=== PATIENT | female | born 1970 | race American Indian/Alaskan Native ===

== ENCOUNTER 2017-03-11 16:48 | Inpatient (IN) | payer OTHER ==
[2017-03-11] MEDS ORDERED: Sodium Chloride 0.9% 1,000 ML IV ONE (17:22)
--- NOTE | 2017-03-11 17:32 | C.PDOC ---
Time Seen by Provider: 03/11/17 17:20 Chief Complaint (Nursing): Abnormal Labs Past Medical History Vital Signs: Last Vital Signs Temp 98.3 F 03/11/17 17:02 Pulse 84 03/11/17 17:02 Resp 16 03/11/17 17:02 BP 134/81 03/11/17 17:02 Pulse Ox 100 03/11/17 17:02 - Medical History PMH: Anemia - Social History Hx Alcohol Use: Yes Hx Substance Use: No - Immunization History Hx Tetanus Toxoid Vaccination: No Hx Influenza Vaccination: No Hx Pneumococcal Vaccination: No ED Course And Treatment O2 Sat by Pulse Oximetry: 100 Disposition - Disposition
--- NOTE | 2017-03-11 18:13 | C.PDOC ---
History Of Present Illness 46 yo female w/PMHx of iron deficiency anemia come in for evaluation of weakness , palpitation, SOB on exertion gradually developed for past few weeks. Pt reports, went to PMD and blood work was drawn on 03/10/17. Pt sts, was called by PMD today and notified that Hb 6. Pt admits, previous hx of iron transfusion , denies blood transfusion. Pt reports, (+) menstrual periods. Otherwise, pt denies fever, chills, LOC, neck pain, CP, diaphoresis, abd. pain, V/D, melena, hematoschezia, back pain, Ambulate to Ed for evaluation, not in any apparent distress. Time Seen by Provider: 03/11/17 17:20 Chief Complaint (Nursing): Abnormal Labs History Per: Patient Onset/Duration Of Symptoms: Gradual Past Medical History Reviewed: Historical Data, Nursing Documentation, Vital Signs Vital Signs: Last Vital Signs Temp 98.3 F 03/11/17 17:02 Pulse 84 03/11/17 17:02 Resp 16 03/11/17 17:02 BP 134/81 03/11/17 17:02 Pulse Ox 100 03/11/17 18:44 - Medical History PMH: Anemia Surgical History: No Surg Hx Family History: States: No Known Family Hx - Social History Hx Tobacco Use: No Hx Alcohol Use: Yes Hx Substance Use: No - Immunization History Hx Tetanus Toxoid Vaccination: No Hx Influenza Vaccination: No Hx Pneumococcal Vaccination: No Review Of Systems Except As Marked, All Systems Reviewed And Found Negative. Constitutional: Negative for: Fever, Chills Eyes: Negative for: Vision Change ENT: Negative for: Throat Pain Cardiovascular: Positive for: Palpitations. Negative for: Chest Pain, Orthopnea Respiratory: Positive for: SOB with Excertion. Negative for: Cough, Shortness of Breath, Wheezing Gastrointestinal: Negative for: Nausea, Vomiting, Abdominal Pain, Melena, Hematochezia, Hematemesis Musculoskeletal: Negative for: Neck Pain, Back Pain Skin: Negative for: Rash Neurological: Negative for: Weakness, Numbness, Altered Mental Status Physical Exam - Physical Exam Appears: Well, Non-toxic, No Acute Distress Skin: Normal Color, Warm Head: Normacephalic Eye(s): bilateral: PERRL Nose: No Flaring, No Discharge Oral Mucosa: Moist Tongue: Normal Appearing Neck: Trachea Midline, Supple Cardiovascular: Rhythm Regular, No JVD, Other ((-) carotid bruits B/L) Respiratory: No Decreased Breath Sounds, No Accessory Muscle Use Gastrointestinal/Abdominal: Soft, No Tenderness, No Distention, No Guarding Back: No CVA Tenderness Extremity: Normal ROM, No Pedal Edema, No Deformity, No Swelling Neurological/Psych: Oriented x3, Normal Speech ED Course And Treatment - Laboratory Results Result Diagrams: 03/11/17 18:01 03/11/17 18:01 Lab Interpretation: Abnormal O2 Sat by Pulse Oximetry: 100 Pulse Ox Interpretation: Normal Progress Note: Pt remained stable during the ED evaluation. Blood work review and appears abnormal, Hb 6. Results review and discussed with pt, admission recommend for blood transfusion. Case discussed with DR. Carrasquillo and admission arranged. Disposition - Disposition Disposition: HOSPITALIZED Disposition Time: 18:41 Condition: STABLE Forms: [facility] (Croatian) - Clinical Impression Clinical Impression: Anemia Physician Patient Turnover Patient Signed Over To: Kendall Peters
[2017-03-11 18:18] LABS: INR 1.1
[2017-03-11 18:19] LABS: BASO # 0.1 K/uL (0.0-0.2); BASO % 1.4 % (0.0-2.0); EOS # 0.2 K/uL (0.0-0.7); EOS % 3.6 % (0.0-4.0); HEMATOCRIT 20.5 % (34.0-47.0); LYMPH # 0.7 K/uL (1.0-4.3); LYMPH % 13.6 % (20.0-40.0); MEAN CELL VOLUME 58.6 fL (81.0-99.0); MEAN CORPUSCULAR HEMOGLOBIN 17.4 pg (27.0-31.0); MEAN CORPUSCULAR HGB CONC 29.7 g/dL (33.0-37.0); MEAN PLATELET VOLUME 8.8 fL (7.2-11.7); MONO # 0.7 K/uL (0.0-0.8); NRBC % 0.1 % (0.0-2.0); PLATELET COUNT 267 K/uL (130-400); RED CELL DISTRIBUTION WIDTH 22.3 % (11.5-14.5); WHITE BLOOD COUNT 5.5 K/uL (4.8-10.8)
[2017-03-11 18:21] LABS: ALKALINE PHOSPHATASE 56 U/L (38-126); ALT/SGPT 11 U/L (9-52); AST/SGOT 22 U/L (14-36); BILIRUBIN,TOTAL 0.3 mg/dL (0.2-1.3); BLOOD UREA NITROGEN 16 mg/dL (7-17); CALCIUM 8.8 mg/dl (8.6-10.4); CARBON DIOXIDE 24 mmol/L (22-30); CHLORIDE 106 mmol/L (98-107); GFR AFRICAN-AMERICAN > 60; GLUCOSE,RANDOM 109 mg/dL (65-105); POTASSIUM 3.7 mmol/L (3.6-5.2); SODIUM 136 mmol/L (132-148)
[2017-03-11 18:51] LABS: THYROID STIMULATING HORMONE 1.22 mIU/L (0.46-4.68)
[2017-03-11 19:09] LABS: RBC URINE < 1 /hpf (0-3); URINE BILIRUBIN NEGATIVE (NEGATIVE); URINE BLOOD NEGATIVE (NEGATIVE); URINE COLOR Straw (YELLOW); URINE GLUCOSE (UA) NORMAL (Normal); URINE KETONE NEGATIVE (NEGATIVE); URINE LEUKOCYTE ESTERASE NEG Leu/uL (Negative); URINE PROTEIN NEGATIVE (NEGATIVE); URINE UROBILINOGEN NORMAL mg/dL (0.2-1.0); WBC URINE < 1 /hpf (0-5)
[2017-03-11 19:53] LABS: NEUTROPHIL 74 % (50-75); TOTAL CELLS COUNTED 100
[2017-03-11 19:54] LABS: GIANT PLATELETS PRESENT; LARGE PLATELETS PRESENT
--- NOTE | 2017-03-11 20:50 | US ---
EXAM: US Pelvis Complete, Transabdominal CLINICAL HISTORY: 46 years old, female; Pain; Pelvic pain; Additional info: Anemia TECHNIQUE: Real-time transabdominal pelvic ultrasound (complete) with image documentation. COMPARISON: No relevant prior studies available. FINDINGS: Uterus/cervix: Uterus measures 14.1 x 8.1 x 9.4 cm in size. Heterogeneous uterus. Two uterine masses, larger measuring 7.7 x 7.2 x 7.6 cm. Endometrium: 1.3 cm in thickness. Right ovary: Not visualized. Left ovary: Not visualized. Free fluid: No significant free fluid. Bladder: Unremarkable as visualized. IMPRESSION: 1. Probable fibroid uterus. EXAM: US Pelvis, Transvaginal CLINICAL HISTORY: 46 years old, female; Pain; Pelvic pain; Additional info: Anemia TECHNIQUE: Real-time transvaginal pelvic ultrasound (complete) with image documentation. Transvaginal imaging was used for better evaluation of the endometrium and adnexa. COMPARISON: No relevant prior studies available. FINDINGS: Uterus/cervix: Uterus measures 14.1 x 8.1 x 9.4 cm in size. Heterogeneous uterus. Two uterine masses, larger measuring 7.7 x 7.2 x 7.6 cm. Endometrium: 1.3 cm in thickness. Right ovary: Not visualized. Left ovary: Not visualized. Free fluid: No significant free fluid. Bladder: Empty bladder which cannot be evaluated with this probe. IMPRESSION: 1. Probable fibroid uterus.
[2017-03-12 08:20] LABS: HEMATOCRIT 21.1 % (34.0-47.0); MEAN CELL VOLUME 60.3 fL (81.0-99.0); MEAN CORPUSCULAR HEMOGLOBIN 18.8 pg (27.0-31.0); MEAN CORPUSCULAR HGB CONC 31.2 g/dL (33.0-37.0); MEAN PLATELET VOLUME 9.1 fL (7.2-11.7); RED CELL DISTRIBUTION WIDTH 24.4 % (11.5-14.5); WHITE BLOOD COUNT 5.5 K/uL (4.8-10.8)
--- NOTE | 2017-03-12 08:53 | RAD ---
PROCEDURE: CHEST RADIOGRAPH, 1 VIEW HISTORY: Shortness of breath COMPARISON: None available. FINDINGS: LUNGS: The lungs are well inflated and clear. PLEURA: No pneumothorax or pleural fluid seen. CARDIOVASCULAR: Normal. OSSEOUS STRUCTURES: No significant abnormalities. VISUALIZED UPPER ABDOMEN: Normal. OTHER FINDINGS: None. IMPRESSION: No active pulmonary disease.
--- NOTE | 2017-03-12 11:05 | CP.PCM.PN ---
Subjective - Date & Time of Evaluation Date of Evaluation: 03/12/17 Time of Evaluation: 11:01 - Subjective Subjective: PT FEELS WEEKE STILL HGB LOW HAS ABN EKG ISCHEMIA Objective - Vital Signs/Intake and Output Vital Signs (last 24 hours): Temp Pulse Resp BP Pulse Ox 98.0 F 88 18 130/85 99 03/12/17 08:00 03/12/17 08:00 03/12/17 08:00 03/12/17 08:00 03/12/17 08:00 Intake and Output: 03/12/17 03/12/17 06:59 18:59 Intake Total 560 Balance 560 - Medications Medications: Current Medications Acetaminophen (Tylenol 325mg Tab) 650 mg PO Q6 PRN PRN Reason: Fever >100.4 F - Labs Labs: 03/12/17 07:54 03/11/17 18:01 PT 12.4 SECONDS (9.7-12.2) H 03/11/17 18:01 INR 1.1 03/11/17 18:01 APTT 27 SECONDS (21-34) 03/11/17 18:01 - Constitutional Appears: Non-toxic - Head Exam Head Exam: NORMAL INSPECTION - Eye Exam Eye Exam: Normal appearance Pupil Exam: NORMAL ACCOMODATION - ENT Exam ENT Exam: Mucous Membranes Moist - Neck Exam Neck Exam: Normal Inspection - Respiratory Exam Respiratory Exam: Clear to Ausculation Bilateral - Cardiovascular Exam Cardiovascular Exam: REGULAR RHYTHM Additional comments: ISCHEMIA EKG - GI/Abdominal Exam GI & Abdominal Exam: Normal Bowel Sounds - Exam External exam: NORMAL EXTERNAL EXAM - Extremities Exam Extremities Exam: Normal Inspection - Back Exam Back Exam: NORMAL INSPECTION - Neurological Exam Neurological Exam: Normal Gait - Psychiatric Exam Psychiatric exam: Normal Affect - Skin Skin Exam: Pallor Assessment and Plan - Assessment and Plan (Free Text) Assessment: SEVERE ANEAMIA MENORHGIA ISCHEMIA Plan: WILL TRANSFUSE AND REPEATE EKG
[2017-03-13 07:45] LABS: HEMATOCRIT 29.4 % (34.0-47.0); MEAN CORPUSCULAR HEMOGLOBIN 20.7 pg (27.0-31.0); MEAN CORPUSCULAR HGB CONC 31.8 g/dL (33.0-37.0); RED CELL DISTRIBUTION WIDTH 32.3 % (11.5-14.5); WHITE BLOOD COUNT 5.3 K/uL (4.8-10.8)
[2017-03-13 08:00] LABS: MEAN CELL VOLUME 65.3 fL (81.0-99.0)
--- NOTE | 2017-03-13 08:06 | CP.PCM.CON ---
History of Present Illness - History of Present Illness History of Present Illness: 46 year old female with no pmx. Was found to have severe anemia by outpatient PMD and was sent [facility]. She is reporting worseing shortness of breath on exertion. Improves with rest. Occurs in the setting of severe anemia. Now improved with blood transfusion. Review of Systems - Review of Systems All systems: reviewed and no additional remarkable complaints except Past Patient History - Past Social History Smoking Status: Never Smoked - HEMATOLOGICAL/ONCOLOGICAL Hx Anemia: Yes - INTEGUMENTARY Hx Eczema: Yes - MUSCULOSKELETAL/RHEUMATOLOGICAL Hx Falls: No - PSYCHIATRIC Hx Substance Use: No - ANESTHESIA Hx Anesthesia: Yes Hx Anesthesia Reactions: No Hx Malignant Hyperthermia: No Has any member of the family had a problem w/ anesthesia?: No Meds Allergies/Adverse Reactions: Allergies Allergy/AdvReac Type Severity Reaction Status Date / Time No Known Allergies Allergy Unverified 03/11/17 17:02 - Medications Medications: Current Medications Acetaminophen (Tylenol 325mg Tab) 650 mg PO Q6 PRN PRN Reason: Fever >100.4 F Last Admin: 03/12/17 22:44 Dose: 650 mg Physical Exam - Constitutional Appears: Well, Non-toxic - Head Exam Head Exam: ATRAUMATIC, NORMAL INSPECTION - Eye Exam Eye Exam: PERRL. absent: Scleral icterus - ENT Exam ENT Exam: Mucous Membranes Moist, Normal External Ear Exam - Neck Exam Neck exam: Negative for: Lymphadenopathy, Thyromegaly - Respiratory Exam Respiratory Exam: Clear to Auscultation Bilateral, NORMAL BREATHING PATTERN - Cardiovascular Exam Cardiovascular Exam: REGULAR RHYTHM, RRR, +S1, +S2. absent: JVD - GI/Abdominal Exam GI & Abdominal Exam: Normal Bowel Sounds. absent: Organomegaly - Extremities Exam Extremities exam: Negative for: calf tenderness, pedal edema - Neurological Exam Neurological exam: CN II-XII Intact, Oriented x3 - Psychiatric Exam Psychiatric exam: Normal Affect Results - Vital Signs Recent Vital Signs: Last Vital Signs Temp 99.2 F 03/12/17 23:49 Pulse 85 03/12/17 23:49 Resp 18 03/12/17 23:49 BP 117/68 03/12/17 23:49 Pulse Ox 99 03/12/17 23:49 - Labs Result Diagrams: 03/12/17 07:54 03/11/17 18:01 Labs: Laboratory Results - last 24 hr 03/11/17 03/12/17 18:01 07:54 WBC 5.5 RBC 3.50 L Hgb 6.6 L Hct 21.1 L MCV 60.3 L MCH 18.8 L MCHC 31.2 L RDW 24.4 H Plt Count 222 MPV 9.1 Blood Type O POSITIVE Antibody Screen Negative - EKG Data EKG Interpreted by: Myself EKG shows normal: Sinus rhythm (Non specific st t changes) - Imaging and Cardiology Chest x-ray Status: Image reviewed by me (No infilrtates, poor inpirtory effort) Assessment & Plan - Assessment and Plan (Free Text) Assessment: 46 year old woman with severe anemia likely due to iron deficiency anemia. S/p PRBC's; Iron PO Menometrorrhagia OCP's EKG has non specific st t changes would be helpful to compare to baseline EKG but likely related to anemia. No further work up planned at this time. She will follow up with me in 2-4 weeks to reasses her symptoms when anemia is corrected.
[2017-03-13 08:40] VITALS: BP 127/79; PULSE 86; RESP 20; TEMP 98.1; O2SAT 98
--- NOTE | 2017-03-13 10:45 | CP.PCM.PN ---
Subjective - Date & Time of Evaluation Date of Evaluation: 03/13/17 Time of Evaluation: 10:42 - Subjective Subjective: feels beter had transfusion blood improved to9.5 no chest pain will see cardiology f/u out pt Objective - Vital Signs/Intake and Output Vital Signs (last 24 hours): Temp Pulse Resp BP Pulse Ox 98.1 F 86 20 127/79 98 03/13/17 08:39 03/13/17 08:39 03/13/17 08:39 03/13/17 08:39 03/13/17 08:39 Intake and Output: 03/13/17 03/13/17 06:59 18:59 Intake Total 328 240 Balance 328 240 - Medications Medications: Current Medications Acetaminophen (Tylenol 325mg Tab) 650 mg PO Q6 PRN PRN Reason: Fever >100.4 F Last Admin: 03/12/17 22:44 Dose: 650 mg - Labs Labs: 03/13/17 07:29 03/11/17 18:01 PT 12.4 SECONDS (9.7-12.2) H 03/11/17 18:01 INR 1.1 03/11/17 18:01 APTT 27 SECONDS (21-34) 03/11/17 18:01 - Constitutional Appears: Non-toxic - Head Exam Head Exam: ATRAUMATIC - Eye Exam Eye Exam: Normal appearance Pupil Exam: NORMAL ACCOMODATION - ENT Exam ENT Exam: Mucous Membranes Moist - Neck Exam Neck Exam: Full ROM - Respiratory Exam Respiratory Exam: NORMAL BREATHING PATTERN - Cardiovascular Exam Cardiovascular Exam: REGULAR RHYTHM - GI/Abdominal Exam GI & Abdominal Exam: Normal Bowel Sounds - Rectal Exam Rectal Exam: NORMAL INSPECTION - Extremities Exam Extremities Exam: Normal Inspection - Back Exam Back Exam: NORMAL INSPECTION - Neurological Exam Neurological Exam: Alert, Normal Gait, Oriented x3 - Psychiatric Exam Psychiatric exam: Normal Affect - Skin Skin Exam: Normal Color, Pallor Assessment and Plan - Assessment and Plan (Free Text) Assessment: severe aneamia menorhgia abn ekg ischemia Plan: will d/c today
--- NOTE | 2017-03-14 12:15 | CARD ---
APPROVED REPORT EKG Measurement Heart [id number] AR [id number] <Conclusion> Normal sinus rhythm Minimal voltage criteria for LVH, may be normal variant Cannot rule out Inferior infarct, age undetermined Abnormal ECG
--- NOTE | 2017-03-15 09:20 | CARD ---
APPROVED REPORT EKG Measurement Heart [id number] OR 166P57 [id number] <Conclusion> Normal sinus rhythm Normal ECG
== END 2017-03-13 12:30 | disposition home or self-care (01) | DRG 812 ==
LOC: C.ER 16:48 → C.9E 18:39 → C.3T 20:25
PROVIDERS: ADMIT Internal Medicine; ATTEND Internal Medicine
PROC: 30233N1 Transfusion of Nonautologous Red Blood Cells into Peripheral Vein, Percutaneous Approach (ICD-10-PCS; principal; 2017-03-11)
DX: D50.9 Iron deficiency anemia, unspecified (principal); N92.1 Excessive and frequent menstruation with irregular cycle

== ENCOUNTER 2018-03-25 13:25 | Emergency (ER) | payer OTHER ==
[2018-03-25 13:44] VITALS: BP 123/83; PULSE 110; RESP 20; TEMP 98.2; O2SAT 98
--- NOTE | 2018-03-25 14:49 | C.PDOC ---
History Of Present Illness 48 year old female presents to the ED complaining of swelling and pain under chin for the last several days. Reports she was seen at Urgent Care and was started on Bactrim. Reports decreased swelling status post using Bactrim but came for the ED for a reevaluation. Denies any fever, chills, or any other complaints. Time Seen by Provider: 03/25/18 14:34 Chief Complaint (Nursing): Abnormal Skin Integrity History Per: Patient History/Exam Limitations: no limitations Onset/Duration Of Symptoms: Days Current Symptoms Are (Timing): Still Present Location Of Injury: Anterior: Neck (swelling ) Quality Of Symptoms: Painful Past Medical History Reviewed: Historical Data, Nursing Documentation, Vital Signs Vital Signs: Last Vital Signs Temp 98.2 F 03/25/18 13:42 Pulse 110 H 03/25/18 13:42 Resp 20 03/25/18 13:42 BP 123/83 03/25/18 13:42 Pulse Ox 98 03/25/18 13:42 - Medical History PMH: Anemia Surgical History: No Surg Hx - [facility] Procedures TRANSFUSE NONAUT RED BLOOD CELLS IN PERIPH VEIN, PERC (03/11/17) Family History: States: No Known Family Hx - Social History Hx Tobacco Use: No Hx Alcohol Use: No Hx Substance Use: No - Immunization History Hx Tetanus Toxoid Vaccination: No Hx Influenza Vaccination: No Hx Pneumococcal Vaccination: No Review Of Systems Constitutional: Negative for: Fever, Chills Skin: Positive for: Other (swelling and pain under chin ) Physical Exam - Physical Exam Appears: Non-toxic, No Acute Distress Skin: Warm, Dry, No Rash, Other (1.5 cm well circumscribed mass to submandibular area, slight fluctuance noted, no overlying erythema, outer induratin, .) Head: Atraumatic, Normacephalic Eye(s): bilateral: Normal Inspection Ear(s): Bilateral: Normal Throat: Normal, No Erythema, No Exudate Neck: Supple Neurological/Psych: Oriented x3, Normal Speech, Normal Cognition Gait: Steady ED Course And Treatment O2 Sat by Pulse Oximetry: 98 (RA) Pulse Ox Interpretation: Normal Medical Decision Making Medical Decision Making: Patient advised to follow up with Plastic or general surgeon for incision and drainage, given location. advised to use warm compresses multiple times a day to help bring abscess to a head and to return to ER if symptoms worsen or new symptoms arise. Disposition Counseled Patient/Family Regarding: Diagnosis, Need For Followup, Rx Given - Disposition Referrals: Julia Alcocer MD [Staff Provider] - Chu Ayon MD [Staff Provider] - Disposition: HOME/ ROUTINE Disposition Time: 14:46 Condition: GOOD Additional Instructions: Warm compresses every 1-2 hours to bump on chin. Finish bactrim. Take keflex as well. Ibuprofen for pain. Follow up with plastics (Dr Alcocer) or general surgeon if abscess hasn't started draining on its own. Prescriptions: Cephalexin [cephalexin] 500 mg PO Q6 #28 cap Ibuprofen [Motrin] 600 mg PO TID #30 tab Instructions: Skin Abscess Forms: [facility] (Swazi), General Discharge Instructions - Clinical Impression Clinical Impression: Abscess of chin - PA / [employer] / Resident Statement MD/DO has reviewed & agrees with the documentation as recorded. - Scribe Statement The provider has reviewed the documentation as recorded by the Lopezibmary Gallagher All medical record entries made by the Lopezibmary were at my direction and personally dictated by me. I have reviewed the chart and agree that the record accurately reflects my personal performance of the history, physical exam, medical decision making, and the department course for this patient. I have also personally directed, reviewed, and agree with the discharge instructions and disposition.
== END 2018-03-25 14:53 | disposition home or self-care (01) ==
LOC: C.ER 13:25
DX: L02.01 Cutaneous abscess of face (principal)

== ENCOUNTER 2018-04-08 11:45 | Emergency (ER) | payer OTHER ==
[2018-04-08] MEDS ORDERED: Tdap Vaccine 0.5 ml Vial (10-64 yrs) IM ONE ×2 (12:08→12:19)
[2018-04-08] MEDS ORDERED: Lidocaine 1%/Epinephrine 1:100000 30 ml vial IJ ONE (12:08)
--- NOTE | 2018-04-08 12:14 | C.PDOC ---
History Of Present Illness 48 year old female presents to the ED for evaluation of an area of swelling and drainage to her left back. Patient had a cyst to the area for "years" that has become more painful over the last two days. Last night, she noticed drainage and presents to the ED for further evaluation. Patient has finished a course of Bactrim and is taking Keflex for a similar cyst to her chin, for which she is undergoing incision by Dr. Ayon in three days. Patient denies fever, chills. Time Seen by Provider: 04/08/18 11:57 Chief Complaint (Nursing): Abnormal Skin Integrity History Per: Patient History/Exam Limitations: no limitations Onset/Duration Of Symptoms: Hrs Current Symptoms Are (Timing): Still Present Location Of Injury: Left: Back Quality Of Symptoms: Painful, Swollen, Draining Additional History Per: Patient Past Medical History Reviewed: Historical Data, Nursing Documentation, Vital Signs Vital Signs: Last Vital Signs Temp 98.1 F 04/08/18 11:50 Pulse 108 H 04/08/18 11:50 Resp 20 04/08/18 11:50 BP 152/100 H 04/08/18 11:50 Pulse Ox 99 04/08/18 11:50 - Medical History PMH: Anemia Surgical History: No Surg Hx - [facility] Procedures TRANSFUSE NONAUT RED BLOOD CELLS IN PERIPH VEIN, PERC (03/11/17) Family History: States: Unknown Family Hx - Social History Hx Tobacco Use: No Hx Alcohol Use: No Hx Substance Use: No - Immunization History Hx Tetanus Toxoid Vaccination: No Hx Influenza Vaccination: No Hx Pneumococcal Vaccination: No Review Of Systems Constitutional: Negative for: Fever, Chills Skin: Positive for: Other (pain, swelling and drainage to area on left back ) Physical Exam - Physical Exam Appears: Non-toxic, No Acute Distress Skin: Warm, Dry, Other ([id number] area of hyperpigmentation with central swelling and fluctuance; mild erythema and drainage) Head: Atraumatic, Normacephalic Eye(s): bilateral: Normal Inspection Nose: Normal Oral Mucosa: Moist Neck: Normal ROM, Supple Chest: Symmetrical, No Deformity, No Tenderness Cardiovascular: Rhythm Regular Respiratory: Normal Breath Sounds, No Rales, No Rhonchi, No Wheezing Extremity: Normal ROM, Capillary Refill (less than 2 seconds ) Neurological/Psych: Oriented x3, Normal Speech, Normal Cognition ED Course And Treatment O2 Sat by Pulse Oximetry: 99 (on RA) Pulse Ox Interpretation: Normal Progress Note: Patient given Percocet PO and Tetanus IM. Wound culture obtained. Area was incised and drained and packed with gauze by me. Patient tolerated well. On reassessment, patient is resting comfortably, showing no signs of distress and is stable for discharge. Patient noted to have elevated blood pressure in the ED. Discussed risks of untreated blood pressure. Patient is advised to follow up with PMD for repeat BP and surgeon/ ER in 2 days for wound check. - Incision & Drainage Of Abscess Anesthesia: Lidocaine 2%, With Epi Prep Used: Sterile Water, Betadine Procedure: Incised W/Scalpel Blade#: (11), Drained Pus, Irrigated Cavity W/Saline, Probed To Break Up Loculations, Packed W/Gauze, Cultures Obtained And Sent To Lab Disposition - Disposition Disposition: HOME/ ROUTINE Disposition Time: 12:45 Condition: STABLE Additional Instructions: Continue taking the antibiotics you are currently on. Follow up with the ER or surgeon in 2 days for re-evaluation. Return to ER if symptoms persist or worsen. Instructions: Abscess Incision and Drainage (DC) Forms: [facility] (Polish) - Clinical Impression Clinical Impression: Incisional abscess - PA / [employer] / Resident Statement MD/DO has reviewed & agrees with the documentation as recorded. - Scribe Statement The provider has reviewed the documentation as recorded by the Scribe (Jamaica Rodrigez) All medical record entries made by the Scribe were at my direction and personally dictated by me. I have reviewed the chart and agree that the record accurately reflects my personal performance of the history, physical exam, medical decision making, and the department course for this patient. I have also personally directed, reviewed, and agree with the discharge instructions and disposition.
[2018-04-08] MEDS ORDERED: Oxycodone/Acetaminophen 5/325 mg Tab PO STA (12:40)
[2018-04-08] MEDS ORDERED: Oxycodone/Acetaminophen 5/325 mg Tab ONE (12:42)
[2018-04-08 12:56] VITALS: BP 130/94; PULSE 85; RESP 17; TEMP 98.2
[2018-04-08 13:42] VITALS: O2SAT 99
== END 2018-04-08 12:55 | disposition home or self-care (01) ==
LOC: C.ER 11:45
DX: L02.212 Cutaneous abscess of back [any part, except buttock and flank] (principal); Z23 Encounter for immunization

== ENCOUNTER 2018-04-11 08:39 | Day surgery (SDC) | payer OTHER ==
[2018-04-09 11:08] VITALS: BMI 29.0
[2018-04-11 09:40] VITALS: PULSE 96; RESP 18; TEMP 98; O2SAT 99
[2018-04-11] MEDS ORDERED: Lidocaine/Epinephrine 1% 1:100000 10 ML IJ ONE (11:37)
[2018-04-11] MEDS ORDERED: Bupivacaine 0.25% 20 ML INJ IJ ONE (11:37)
[2018-04-11] MEDS ORDERED: ceFAZolin 1 gm in NS 1 GM/100 ML BAG IVPB ONE ×2 (11:37→11:49)
[2018-04-11] MEDS ORDERED: Propofol 10 mg/ml Inj (20 ML) ONE (11:46)
[2018-04-11] MEDS ORDERED: Midazolam 2 MG/2 ML VIAL ONE (11:46)
[2018-04-11] MEDS ORDERED: Lidocaine Hydrochloride 5 ML INJ ONE (13:04)
[2018-04-11] MEDS ORDERED: Oxycodone/Acetaminophen 5/325 mg Tab PO PRN (13:26)
[2018-04-11] MEDS ORDERED: Lactated Ringer's 1,000 ML IV SCH (13:30)
--- NOTE | 2018-04-11 13:32 | PCM.SURG1 ---
Surgeon's Initial Post Op Note - Surgeon's Notes Surgeon: Dr. Ayon [employer] Illustrator: Dr. Gray Type of Anesthesia: IV Sedation, Local Anesthesia Administered By: Dr. Torres Pre-Operative Diagnosis: Left chin sebaceous cyst and Left back infected sebaceous cyst Operative Findings: see operative note Post-Operative Diagnosis: same Operation Performed: Excision of left sided chin sebaceous cyst and incision and debridement of left back sebaceous cyst w/ iodoform packing Specimen/Specimens Removed: sebaceous cyst, soft tissue Estimated Blood Loss: EBL {In ML}: 10 Blood Products Given: N/A Drains Used: No Drains Post-Op Condition: Good Date of Surgery/Procedure: 04/11/18 Time of Surgery/Procedure: 13:32
[2018-04-11 14:26] VITALS: BP 119/68
--- NOTE | 2018-04-11 21:56 | OP ---
PROCEDURE DATE: 04/11/2018 PREOPERATIVE DIAGNOSES: 1. Sebaceous cyst of the upper neck and chin area. 2. Infected sebaceous cyst abscess of the left side mid back. POSTOPERATIVE DIAGNOSES: 1. Sebaceous cyst of the upper neck and chin area. 2. Infected sebaceous cyst abscess of the left side mid back. PROCEDURES DONE: 1. Excision of the sebaceous cyst of upper neck and chin area, approximately 2 x 3 cm size. 2. Excision of the redundant infected skin of the chin and upper neck area, approximately 3 x 2 cm size. 3. Layered closure of the wound, 4 x 3 x 1 cm size. 4. Incision and drainage of left mid back abscess. 5. Excision of the underlying sebaceous cyst with debridement of the wound of the left mid back. SURGEON: Chu Aoyn MD STAFF AIR TACTICAL OFFICER: Galdino Gray DO ANESTHESIA: Location anesthesia plus sedation. ESTIMATED BLOOD LOSS: Around 10 mL. DRAINS: None. PATHOLOGY: The sebaceous cyst of the chin area as well as infected debrided tissue of the back and the pus was sent for the culture and sensitivity. INTRAOPERATIVE FINDINGS: The patient had approximately 3 x 2 cm sebaceous cyst of the chin area with surrounding infected thickened skin. The patient also had abscess of the left mid back area with underlying sebaceous cyst. DESCRIPTION OF PROCEDURE: On intraoperative steps, this is a 48-year-old female who was diagnosed with a sebaceous cyst of the chin and upper neck area. The patient also had abscess of the left mid back area that was drained by emergency room two days ago. The patient was consented for the excision of the upper neck and chin area sebaceous cysts as well as I and D and debridement of the mid back abscess and underlying sebaceous cyst. Brought to the OR, placed supine on the operating table after induction of the anesthesia. The patient's neck was prepped and draped in the usual sterile fashion. Local anesthesia was injected. Elliptical incision was made and the upper and lower flaps were created. The sebaceous cyst was completely excised, and it was sent off the table for the pathology. The surrounding skin was also excised because it was thickened, edematous, and abnormal looking. Now, the wound was approximately 4 x 3 x 1 cm in size. The wound was irrigated and the multilayered closure was done, deeper subcu with 3-0 Vicryl skin with a 4-0 Monocryl, and dry sterile dressing was applied. The patient tolerated the procedure well. Count of the instrument and gauze was correct. There was no apparent complication. The patient was turned to the right lateral position, and now the left upper back was prepped and draped in the usual sterile fashion. The previous I and D incision was extended. Approximately 4 cm sized abscess cavity was entered, and complete drainage of the abscess cavity was done. Underlying sebaceous cyst was also debrided, and debrided tissue was sent off the table for pathology. The hemostasis was achieved. The wound was packed with iodoform packing, and dry sterile dressing was applied. The patient tolerated the procedure well. Count of the instrument and gauze was correct. There was no apparent complication. The patient was sent to the postanesthesia care unit in stable condition. Chu Ayon MD
== END 2018-04-11 15:53 | disposition home or self-care (01) ==
LOC: C.SDS 08:39
PROVIDERS: ATTEND Surgery Surgical Critical Care
DX: L72.3 Sebaceous cyst (principal)
CPT/HCPCS: 10060; 11423; 12042; 36415; 86850; 86900; 87070; 88305; J0690; J2250; J2704; J3010

== ENCOUNTER 2018-04-13 09:29 | Emergency (ER) | payer OTHER ==
[2018-04-13 09:29] VITALS: BMI 29.0
[2018-04-13 09:36] VITALS: RESP 18; O2SAT 99
--- NOTE | 2018-04-13 09:46 | C.PDOC ---
History Of Present Illness 48 year old female with a PMHx of anemia presents for wound care. Patient had cyst removal on her chin and upper back on Monday by Dr. Rico. She was told follow up for wound care today. She only complains of mild tenderness at the procedural sites. ROS POSITIVE: Surgical site tenderness (Upper back, chin) NEGATIVE: Fever,chills, headache, chest pain,SOB, abdominal pain, nausea, vomiting, changes in bowel habits, urination. PMHx: Anemia Allergies: No SocialHx: Denies Tobacco, Social EtoH, Denies illicit drug use Meds: Percocet PRN Time Seen by Provider: 04/13/18 09:46 Chief Complaint (Nursing): Wound Check Past Medical History Vital Signs: Last Vital Signs Temp 98.1 F 04/13/18 09:32 Pulse 96 H 04/13/18 09:32 Resp 18 04/13/18 09:32 BP 139/96 H 04/13/18 09:32 Pulse Ox 99 04/13/18 09:32 - Medical History PMH: Anemia (HX: HEAVY MENSES) - [facility] Procedures TRANSFUSE NONAUT RED BLOOD CELLS IN PERIPH VEIN, PERC (03/11/17) Family History: States: Unknown Family Hx - Social History Hx Tobacco Use: No Hx Alcohol Use: No Hx Substance Use: No - Immunization History Hx Tetanus Toxoid Vaccination: Yes Hx Influenza Vaccination: No Hx Pneumococcal Vaccination: No Review Of Systems Except As Marked, All Systems Reviewed And Found Negative. (As per HPI) Physical Exam - Physical Exam Appears: Well, Non-toxic, No Acute Distress Skin: Other (1x.5 cm wound on left upper back (scapular region) packed, non- draining, no erythema. ) Head: No Atraumatic, Laceration (Chin w/ sutures (Clean, dry, and intact.) Eye(s): bilateral: EOMI Nose: Normal Oral Mucosa: Moist Tongue: Normal Appearing Lips: Normal Appearing Teeth: Normal Dentition Gingiva: Normal Appearing Neck: Normal ROM Lymphatic: No Adenopathy (Cervical) Cardiovascular: Rhythm Regular Respiratory: Normal Breath Sounds, No Decreased Breath Sounds, No Accessory Muscle Use, No Rales, No Rhonchi Gastrointestinal/Abdominal: Soft, No Tenderness, No Mass Extremity: No Tenderness, No Pedal Edema Neurological/Psych: Oriented x3, Normal Speech, Normal Cognition ED Course And Treatment O2 Sat by Pulse Oximetry: 99 Medical Decision Making Medical Decision Making: Wound Care Surgery Resident paged for wound care. Patient to follow up on Monday in the E.R and on Monday with Dr. Rico. Dispo: Patient to go home with Clindamycin TID for 7 days. Disposition - Disposition Disposition: HOME/ ROUTINE Disposition Time: 10:16 Condition: FAIR Prescriptions: Clindamycin [Cleocin] 300 mg PO TID 7 Days #21 cap Instructions: Surgical Wound (DC), Wound Care (DC) Forms: [facility] (Icelandic) - POA Present On Arrival: None - Clinical Impression Clinical Impression: Wound, Change of dressing
--- NOTE | 2018-04-13 10:27 | CP.PCM.CON ---
History of Present Illness - History of Present Illness History of Present Illness: Surgery Note for Dr. Ayon 48 year old female status post left chin sebaceous cyst removal and left upper back incision and drainage of infected sebaceous cyst POD2. Patient arrived to emergency department for wound care management. PMH: Denies PSH: See above FH: Noncontributory SH: Denies tobacco, alcohol, drugs ALL: NKDA Meds: See MAR Review of Systems - Constitutional Constitutional: absent: Chills, Fever - EENT Eyes: absent: Blurred Vision, Change in Vision Nose/Mouth/Throat: absent: Nasal Congestion, Nasal Discharge - Cardiovascular Cardiovascular: absent: Chest Pain, Chest Pain at Rest - Respiratory Respiratory: absent: Cough, Dyspnea - Gastrointestinal Gastrointestinal: absent: Abdominal Pain, Nausea, Vomiting - Genitourinary Genitourinary: absent: Difficulty Urinating, Dysuria - Musculoskeletal Musculoskeletal: absent: Back Pain, Neck Pain - Integumentary Integumentary: Change in Pigmentation, Wounds. absent: Bleeding Lesions, Changing Lesions, New Lesions, Non-Healing Lesions, Pruritus, Rash, Skin Pain - Neurological Neurological: absent: Confusion, Dizziness - Psychiatric Psychiatric: absent: Anxiety, Depression Past Patient History - Past Medical History & Family History Past Medical History?: Yes - Past Social History Smoking Status: Never Smoked - HEMATOLOGICAL/ONCOLOGICAL Hx Anemia: Yes (HX: HEAVY MENSES) - INTEGUMENTARY Hx Dermatological Problems: Yes Hx Eczema: Yes Other/Comment: HX: "AGE 15YRS. OLD CYST ON LEFT BREAST." - MUSCULOSKELETAL/RHEUMATOLOGICAL Hx Falls: No - GENITOURINARY/GYNECOLOGICAL Hx Genitourinary Disorders: Yes Other/Comment: HX: HEAVY MENSES. HX: MISCARRIAGE. HX: ETOPIC - PSYCHIATRIC Hx Substance Use: No - SURGICAL HISTORY Hx Surgeries: Yes Hx Dilation and Curettage: Yes Other/Comment: HX: "AGE [age] YEARS OLD-CYST REMOVED FROM LEFT BREAST.". HX: "ETOPIC -RIGHT FALLOPIAN TUBE REMOVED." - ANESTHESIA Hx Anesthesia: Yes Hx Anesthesia Reactions: No Hx Malignant Hyperthermia: No Meds Home Medications: Home Medication List Medication Instructions Recorded Confirmed Type Clindamycin [Cleocin] 300 mg PO TID 7 Days #21 cap 04/13/18 Rx Allergies/Adverse Reactions: Allergies Allergy/AdvReac Type Severity Reaction Status Date / Time No Known Allergies Allergy Verified 04/13/18 09:31 Physical Exam - Constitutional Appears: Well, Non-toxic, No Acute Distress - Head Exam Head Exam: ATRAUMATIC, NORMAL INSPECTION, NORMOCEPHALIC - Eye Exam Eye Exam: EOMI - ENT Exam ENT Exam: Mucous Membranes Moist - Respiratory Exam Respiratory Exam: NORMAL BREATHING PATTERN. absent: Respiratory Distress - Cardiovascular Exam Cardiovascular Exam: REGULAR RHYTHM. absent: Tachycardia - GI/Abdominal Exam GI & Abdominal Exam: Normal Bowel Sounds, Soft. absent: Tenderness - Neurological Exam Neurological exam: Alert, Oriented x3 - Psychiatric Exam Psychiatric exam: Normal Affect, Normal Mood - Skin Skin Exam: Dry, Intact, Normal Color, Warm Additional comments: Left chin dressing c/d/i Left upper back dressings removed - incision clean, dry, nonerythematous, no active drainage or bleeding noted 1/4 packing inserted, dressings applied Results - Vital Signs Recent Vital Signs: Last Vital Signs Temp 98.1 F 04/13/18 09:32 Pulse 96 H 04/13/18 09:32 Resp 18 04/13/18 09:32 BP 139/96 H 04/13/18 09:32 Pulse Ox 99 04/13/18 10:16 Assessment & Plan - Assessment and Plan (Free Text) Assessment: 48F s/p left upper back I&D of sebaceous cyst and left chin sebaceous cyst removal POD2 Plan: Patient arrived to ER for wound care management Left chin dressing remained intact Left upper back dressings removed, packing replaced with 1/4 inch iodoform packing, dressings applied w/ silk tape Clindamycin 300mg TID for 7 days prescribed Patient to return to ER on Monday for packing and dressing changes Patient to follow up with Dr. Ayon in office on Monday for further evaluation D/w Dr. Gabo Gray PGY1
[2018-04-13 10:33] VITALS: BP 164/82; PULSE 90; TEMP 97.4
== END 2018-04-13 10:40 | disposition home or self-care (01) ==
LOC: C.ER 09:29
DX: Z48.01 Encounter for change or removal of surgical wound dressing (principal)

== ENCOUNTER 2018-04-15 15:55 | Emergency (ER) | payer OTHER ==
[2018-04-15 15:55] VITALS: BMI 29.0
[2018-04-15 16:12] VITALS: TEMP 98.2
--- NOTE | 2018-04-15 16:37 | C.PDOC ---
History Of Present Illness 48 y/o female presents to the ED for wound check of her back and chin. Patient had 2 sebaceous cysts removed on 04/11/[address] Ayon, one below her chin and one to the mid back. Patient was seen for dressing change on 04/13 and instructed to follow up for wound check today. She complains only of itchiness to the dressing. Otherwise patient denies any fevers, chills, or worsening redness or drainage from site. On arrival, patients blood pressure was noted to be elevated. She denies any chest pain, SOB, headaches, dizziness, visual changes, nausea, or vomiting. Time Seen by Provider: 04/15/18 16:34 Chief Complaint (Nursing): Wound Check History Per: Patient History/Exam Limitations: no limitations Onset/Duration Of Symptoms: Days Ago Current Symptoms Are (Timing): Still Present Past Medical History Reviewed: Historical Data, Nursing Documentation, Vital Signs Vital Signs: Last Vital Signs Temp 98.2 F 04/15/18 16:07 Pulse 99 H 04/15/18 16:07 Resp 18 04/15/18 16:07 BP 138/93 H 04/15/18 16:07 Pulse Ox 99 04/15/18 16:07 - Medical History PMH: Anemia (HX: HEAVY MENSES) - [facility] Procedures TRANSFUSE NONAUT RED BLOOD CELLS IN PERIPH VEIN, PERC (03/11/17) Family History: States: Unknown Family Hx - Social History Hx Tobacco Use: No Hx Alcohol Use: Yes Hx Substance Use: No - Immunization History Hx Tetanus Toxoid Vaccination: Yes Hx Influenza Vaccination: No Hx Pneumococcal Vaccination: No Review Of Systems Constitutional: Negative for: Fever, Chills Eyes: Negative for: Vision Change Cardiovascular: Negative for: Chest Pain Respiratory: Negative for: Shortness of Breath Gastrointestinal: Negative for: Nausea, Vomiting Skin: Positive for: Other (Incisions to mid back and below the chin). Negative for: Rash (or drainage from incision site) Neurological: Negative for: Weakness, Numbness, Change in Speech, Headache Physical Exam - Physical Exam Appears: Well, Non-toxic, No Acute Distress Skin: Warm, Dry Head: Normacephalic, Other (Dressing intact below the chin, no surrounding erythema, no tenderness -- Did not remove dressing per instruction from surgery) Eye(s): bilateral: Normal Inspection, PERRL, EOMI Nose: Normal Neck: Supple Chest: Symmetrical Respiratory: No Accessory Muscle Use, Other (Normal respiratory effort) Back: Other (Dressing intact to mid back -- On removal, there is a 2cm incision with packing in place, no surrounding erythema or drainage) Extremity: Bilateral: Normal ROM Neurological/Psych: Oriented x3 Gait: Steady ED Course And Treatment O2 Sat by Pulse Oximetry: 99 (RA) Pulse Ox Interpretation: Normal Medical Decision Making Medical Decision Making: Impression: Visit for wound check Initial Plan: * Consult surgery * Reassess and Disposition 16:56 Case was discussed with surgery, who instructed not to remove chin dressing. resident assistant came to the ED and changed wound dressing. Patient is stable for discharge home. She reports her next follow up with the surgeon is on Monday 04/17. Patient advised to follow up in the office or return to the ED if worse. Patient educated on importance of followup for elevated BP, patient asymptomatic at this time. Diagnostic testing results and plan of care discussed with patient. Strict instructions given regarding prescription use, importance of followup, and signs/symptoms to return to ER including fever, chills, signs of wound infection or any other new/worsening symptoms. Pt verbalized understanding of discussion. Patient is A&Ox3, ambulating with steady gait, with vital signs stable for discharge. Disposition Counseled Patient/Family Regarding: Diagnosis, Need For Followup - Disposition Referrals: [facility] [Outside] Damon Landaverde MD [Staff Provider] - Chu Ayon MD [Staff Provider] - Disposition: HOME/ ROUTINE Disposition Time: 18:02 Condition: IMPROVED Additional Instructions: Followup with Dr. Rico as scheduled on Monday Followup with primary within 2 days Followup with cardiology within 2 days Return to ER with any new/worsening symptoms Instructions: High Blood Pressure in Adults, Wound Care (DC), Controlling Your Blood Pressure Through Lifestyle Forms: General Discharge Instructions, [facility] (Chinese), Work Excuse - Clinical Impression Clinical Impression: Dressing change - PA / US MARKETING DIRECTOR / Resident Statement MD/DO has reviewed & agrees with the documentation as recorded. - Scribe Statement The provider has reviewed the documentation as recorded by the Scribmary Rice All medical record entries made by the Scribe were at my direction and personally dictated by me. I have reviewed the chart and agree that the record accurately reflects my personal performance of the history, physical exam, medical decision making, and the department course for this patient. I have also personally directed, reviewed, and agree with the discharge instructions and disposition.
[2018-04-15 17:45] VITALS: PULSE 85
[2018-04-15 18:02] VITALS: BP 172/98; RESP 18
[2018-04-15 21:36] VITALS: O2SAT 99
== END 2018-04-15 18:13 | disposition home or self-care (01) ==
LOC: C.ER 15:55
DX: Z48.01 Encounter for change or removal of surgical wound dressing (principal)